=== PATIENT | male | born 1925 | race Caucasian/White ===

== ENCOUNTER 2017-09-09 17:22 | Emergency (ER) | payer MEDICARE, OTHER ==
[~2017-09-09 17:22] MED LIST: Phenylephrine 0.5% Nasal Spray 15 ML Bot NASLF ONE
--- NOTE | 2017-09-09 17:39 | EDM.PDOC ---
ED HPI GENERAL MEDICAL PROBLEM - General Chief Complaint: ENT Problem Stated Complaint: CAME BY AMBULANCE, BLOODY NOSE Time Seen by Provider: 09/09/17 17:34 Source of Information: Reports: Patient History Limitations: Reports: No Limitations - History of Present Illness INITIAL COMMENTS - FREE TEXT/NARRATIVE: Patient complains of epitaxis. He's had a bloody nose since about 2:00 this afternoon. It's been intermittent. He presents by ambulance. He denies lightheadedness. Recently increased his nasal cannula oxygen. His bloody nose began after this. He denies any change in his other medications. Denies lightheadedness. No complaints of headache or ear pain. No difficulty with swallowing. No recent falls or injuries. Onset: Today, Sudden Duration: Hour(s): Location: Reports: Face Severity: Mild - Related Data Allergies Allergy/AdvReac Type Severity Reaction Status Date / Time ciprofloxacin Allergy Diarrhea Verified 09/09/17 17:36 ibuprofen Allergy Other Verified 09/09/17 17:36 isosorbide Allergy Other Verified 09/09/17 17:36 propoxyphene [From Darvon] Allergy Other Verified 09/09/17 17:36 Home Meds: Home Meds Allopurinol [Zyloprim] 100 mg PO DAILY 09/09/17 [History] Aspirin [Halfprin] 81 mg PO DAILY 09/09/17 [History] Budesonide [Pulmicort] 1 vial INH BID 09/09/17 [History] Clopidogrel [Plavix] 75 mg PO DAILY 09/09/17 [History] Formoterol Fumarate [Perforomist] 1 vial INH BID 09/09/17 [History] Furosemide 60 mg PO DAILY 09/09/17 [History] Levothyroxine [Synthroid] 50 mcg PO DAILY 09/09/17 [History] Lisinopril 2.5 mg PO Q48H 09/09/17 [History] Metolazone 2.5 mg PO ASDIRECTED PRN 09/09/17 [History] Metoprolol Tartrate [Lopressor] 12.5 mg PO BID 09/09/17 [History] Nitroglycerin [Nitrostat] 1 tab SL ASDIRECTED PRN 09/09/17 [History] Pantoprazole [ProTONIX] 40 mg PO DAILY 09/09/17 [History] Potassium Chloride 10 meq PO BID 09/09/17 [History] Simvastatin [Zocor] 20 mg PO DAILY 09/09/17 [History] amLODIPine [Norvasc] 2.5 mg PO DAILY 09/09/17 [History] traMADol [Ultram] 50 mg PO Q6H PRN 09/09/17 [History] ED ROS ENT - Review of Systems Review Of Systems: ROS reveals no pertinent complaints other than HPI. ED EXAM, ENT - Physical Exam Exam: See Below Exam Limited By: No Limitations General Appearance: Alert Nose: Active Bleeding, Dried Blood, Other (Patient has active anterior bleeding on the left nares. After Memo-Synephrine bleeding was controlled. He's had intermittent bleeding while in the emergency room. No sinus tenderness.) Neck: Normal Inspection, Supple Respiratory/Chest: No Respiratory Distress, Lungs Clear Cardiovascular: Normal Peripheral Pulses, Regular Rate, Rhythm Extremities: Normal Inspection, Normal Capillary Refill Neurological: Alert, Oriented, CN II-XII Intact Skin: Warm, Dry ED ENT PROCEDURES - Epistaxis Procedure Indication: Epistaxis, Controlled Recent anticoagulants/antiplatlets: Yes Uncontrolled HTN: No Recent septal/nasal surgery: No Site of bleeding: Left Nare, Anterior Clearing of clots: Patient Blew Nose Topical Meds: Phenylephrine Anterior Packing: Nasal [place] Complications: No Course - Vital Signs Last Recorded V/S: Last Vital Signs Temp 99.1 F 09/09/17 17:23 Pulse 72 09/09/17 17:23 Resp 18 09/09/17 17:23 BP 109/69 09/09/17 17:23 Pulse Ox 88 L 09/09/17 17:23 - Orders/Labs/Meds Labs: Laboratory Tests 09/09/17 Range/Units 17:45 WBC 9.4 (5.0-10.0) 10^3/uL RBC 3.47 L (4.6-6.2) 10^6/uL Hgb 11.9 L (14.0-18.0) g/dL Hct 36.5 L (40.0-54.0) % MCV 105.2 H (80-100) fL MCH 34.3 H (27.0-34.0) pg MCHC 32.6 L (33.0-35.0) g/dL Plt Count 165 (150-450) 10^3/uL Neut % (Auto) 70.4 (42.2-75.2) % Lymph % (Auto) 14.9 L (20.5-50.1) % [place] % (Auto) 10.7 H (2-8) % Eos % (Auto) 3.7 H (1.0-3.0) % Baso % (Auto) 0.3 (0.0-1.0) % Meds: Medications Discontinued Medications Generic Name Dose Route Start Last Admin Trade Name Taqueria PRN Reason Stop Dose Admin Bacitracin Confirm 09/09/17 18:11 09/09/17 18:24 Bacitracin Oint 1 Gm Administered 09/09/17 18:12 Not Given Dose 1 dose .ROUTE .STK-MED ONE Bacitracin 2 dose 09/09/17 18:16 09/09/17 18:24 Bacitracin Oint 1 Gm TOP 09/09/17 18:17 2 dose ONETIME ONE Administration Bacitracin Confirm 09/09/17 18:14 09/09/17 18:24 Bacitracin Oint 1 Gm Administered 09/09/17 18:15 Not Given Dose 1 dose .ROUTE .STK-MED ONE Phenylephrine HCl Confirm 09/09/17 17:08 09/09/17 18:24 Memo-Synephrine 0.25% Mild Nasal [place] Administered 09/09/17 17:09 Not Given Dose 15 ml .ROUTE .STK-MED ONE Phenylephrine HCl 2 ml 09/09/17 17:10 09/09/17 18:24 Memo-Synephrine 0.5% Regular Nasal [place] NASLF 09/09/17 17:11 2 sprays ONETIME ONE Administration Departure - Departure Time of Disposition: 18:43 Disposition: Home, Self-Care 01 Condition: Good Clinical Impression: Epistaxis - Discharge Information Forms: ED Department Discharge Additional Instructions: Follow-up to the emergency room or primary care on Monday to talk about removal of nasal packing. Continue with regular medications. Use nasal oxygen as directed. Call or return to the emergency room of problems questions or concerns
[2017-09-09] MEDS ORDERED: Bacitracin Oint 1 GM U/D Packet ONE ×2 (18:11→18:14)
[2017-09-09] MEDS ORDERED: Bacitracin Oint 1 GM U/D Packet TOP ONE (18:16)
== END 2017-09-09 18:54 | disposition home or self-care (01) ==
LOC: DL.ED 17:22
DX: R04.0 Epistaxis (principal); Z79.82 Long term (current) use of aspirin; Z79.02 Long term (current) use of antithrombotics/antiplatelets; Z79.899 Other long term (current) drug therapy; Z88.1 Allergy status to other antibiotic agents; Z88.8 Allergy status to other drugs, medicaments and biological substances
CPT/HCPCS: 30901; 36415; 85025; 99282; 99283

== ENCOUNTER 2017-09-11 10:53 | Emergency (ER) | payer MEDICARE, OTHER ==
[2017-09-11] MEDS ORDERED: diphenhydrAMINE 50 MG/ML SDV IM ONE (12:03)
--- NOTE | 2017-09-11 12:24 | EDM.PDOC ---
Scribed by Destiny Stauffer 09/11/17 1218 for Herminio Maynard PA ED HPI GENERAL MEDICAL PROBLEM - General Chief Complaint: ENT Problem Stated Complaint: NEED PACKING REMOVED FROM NOSE Time Seen by Provider: 09/11/17 12:10 Source of Information: Reports: Patient, RN, RN Notes Reviewed History Limitations: Reports: No Limitations - History of Present Illness INITIAL COMMENTS - FREE TEXT/NARRATIVE: This 89 yo female patient reports to the ED to have his nasal packing removed. The patient had the packing placed in the ED on 09/09/17. The patient has had no return or bleeding. Onset: Sudden Duration: Day(s): (2), Constant Location: Reports: Face Quality: Reports: Dull, Pressure Severity: Mild Improves with: Reports: None Worsens with: Reports: None Associated Symptoms: Reports: No Other Symptoms - Related Data Allergies Allergy/AdvReac Type Severity Reaction Status Date / Time ciprofloxacin Allergy Diarrhea Verified 09/09/17 17:36 ibuprofen Allergy Other Verified 09/09/17 17:36 isosorbide Allergy Other Verified 09/09/17 17:36 propoxyphene [From Darvon] Allergy Other Verified 09/09/17 17:36 Home Meds: Home Meds Allopurinol [Zyloprim] 100 mg PO DAILY 09/09/17 [History] Aspirin [Halfprin] 81 mg PO DAILY 09/09/17 [History] Budesonide [Pulmicort] 1 vial INH BID 09/09/17 [History] Clopidogrel [Plavix] 75 mg PO DAILY 09/09/17 [History] Formoterol Fumarate [Perforomist] 1 vial INH BID 09/09/17 [History] Furosemide 60 mg PO DAILY 09/09/17 [History] Levothyroxine [Synthroid] 50 mcg PO DAILY 09/09/17 [History] Lisinopril 2.5 mg PO Q48H 09/09/17 [History] Metolazone 2.5 mg PO ASDIRECTED PRN 09/09/17 [History] Metoprolol Tartrate [Lopressor] 12.5 mg PO BID 09/09/17 [History] Nitroglycerin [Nitrostat] 1 tab SL ASDIRECTED PRN 09/09/17 [History] Pantoprazole [ProTONIX] 40 mg PO DAILY 09/09/17 [History] Potassium Chloride 10 meq PO BID 09/09/17 [History] Simvastatin [Zocor] 20 mg PO DAILY 09/09/17 [History] amLODIPine [Norvasc] 2.5 mg PO DAILY 09/09/17 [History] traMADol [Ultram] 50 mg PO Q6H PRN 09/09/17 [History] Past Medical History HEENT History: Reports: Impaired Vision Cardiovascular History: Reports: CAD, Heart Failure, High Cholesterol, Hypertension, Pulmonary Hypertension Respiratory History: Reports: COPD Endocrine/Metabolic History: Reports: Diabetes, Type II - Past Surgical History Cardiovascular Surgical History: Reports: Coronary Artery Bypass Social & Family History - Tobacco Use Smoking Status *Q: Former Smoker Years of Tobacco use: 36 Packs/Tins Daily: 1 Used Tobacco, but Quit: Yes Month Tobacco Last Used: 1983 - Caffeine Use Caffeine Use: Reports: Coffee, Soda, Tea - Recreational Drug Use Recreational Drug Use: No ED ROS ENT - Review of Systems Review Of Systems: ROS reveals no pertinent complaints other than HPI. ED EXAM, ENT - Physical Exam Exam: See Below Exam Limited By: No Limitations General Appearance: Alert, WD/WN, No Apparent Distress Eye Exam: Bilateral Eye: EOMI, Normal Inspection, PERRL Ears: Normal External Exam, Normal Canal, Hearing Grossly Normal, Normal TMs Nose: Normal Inspection, Normal Mucousa, No Blood, Other (dry) Mouth/Throat: Normal Inspection, Normal Gums, Normal Lips, Normal Oropharynx, Normal Teeth Head: Atraumatic, Normocephalic Neck: Normal Inspection, Supple, Non-Tender, Full Range of Motion Respiratory/Chest: No Respiratory Distress, Lungs Clear, Normal Breath Sounds, No Accessory Muscle Use, Chest Non-Tender Cardiovascular: Normal Peripheral Pulses, Regular Rate, Rhythm, No Edema, No Gallop, No JVD, No Murmur, No Rub GI/Abdominal: Normal Bowel Sounds, Soft, Non-Tender, No Organomegaly, No Distention, No Abnormal Bruit, No Mass (Male) Exam: Deferred Rectal (Males) Exam: Deferred Back: Normal Inspection, Full Range of Motion Extremities: Normal Inspection, Normal Range of Motion, Non-Tender, No Pedal Edema, Normal Capillary Refill Neurological: Alert, Oriented, CN II-XII Intact, Normal Cognition, Normal Gait, Normal Reflexes, No Motor/Sensory Deficits Psychiatric: Normal Affect, Normal Mood Skin: Warm, Dry, Intact, Normal Color, No Rash Lymphatic: No Adenopathy Course - Vital Signs Last Recorded V/S: Last Vital Signs Temp 36.6 C 09/11/17 11:12 Pulse 66 09/11/17 11:12 Resp 20 09/11/17 11:12 BP 113/40 L 09/11/17 11:12 Pulse Ox 96 09/11/17 11:12 - Orders/Labs/Meds Meds: Medications Discontinued Medications Generic Name Dose Route Start Last Admin Trade Name Taqueria PRN Reason Stop Dose Admin Diphenhydramine HCl 50 mg 09/11/17 12:03 Benadryl IM 09/11/17 12:04 ONETIME ONE Departure - Departure Time of Disposition: 12:18 Disposition: Home, Self-Care 01 Condition: Fair Clinical Impression: Encounter for removal of nasal pack - Discharge Information Forms: ED Department Discharge Care Plan Goals: The patient was advised of the examination results during the visit. The patient was encouraged to put either a triple antibiotic ointment or Aquaphor in his nares 2 times per day to increase moisture. If the patient has any additional symptoms or concerns, the patient should follow-up with his primary care facility or return to the emergency department. I have read and agree with the documentation that has been completed regarding this visit. By signing this record, I attest that the documentation was completed in my physical presence and is an accurate record of the encounter.
== END 2017-09-11 12:26 | disposition home or self-care (01) ==
LOC: DL.ED 10:53
DX: Z48.00 Encounter for change or removal of nonsurgical wound dressing (principal); E78.00 Pure hypercholesterolemia, unspecified; I11.0 Hypertensive heart disease with heart failure; I50.9 Heart failure, unspecified; E11.9 Type 2 diabetes mellitus without complications; Z88.1 Allergy status to other antibiotic agents; Z88.8 Allergy status to other drugs, medicaments and biological substances; Z79.82 Long term (current) use of aspirin; Z79.899 Other long term (current) drug therapy; Z87.891 Personal history of nicotine dependence
CPT/HCPCS: 99282

== ENCOUNTER 2017-10-23 05:52 | Emergency (ER) | payer MEDICARE, OTHER ==
[2017-10-23] MEDS ORDERED: Oxymetazoline 0.05% Nasal Spray 15 ML Bottle NAS ONE (05:53)
--- NOTE | 2017-10-23 06:20 | EDM.PDOC ---
ED HPI GENERAL MEDICAL PROBLEM - General Stated Complaint: BLOODY NOSE [id number] Time Seen by Provider: 10/23/17 06:15 Source of Information: Reports: Patient History Limitations: Reports: No Limitations - History of Present Illness INITIAL COMMENTS - FREE TEXT/NARRATIVE: This 89 yo male patient reports to the ED due to a nose bleed. The patient reports his bleeding started last night and he has been up all night attempting to stop the bleeding. The patient reports he has increased the humidity in his home and has been using Vaseline to increase the moisture in his nose, but still got a nosebleed. The patient reports he had a tissue stuffed in his nose all night and does not believe that there is any bleeding at this time. Onset Date: 10/22/17 Duration: Resolved Prior to Arrival Location: Reports: Face (left nare) Quality: Reports: Other Severity: Moderate Improves with: Reports: None Worsens with: Reports: None Context: Reports: Other Associated Symptoms: Reports: No Other Symptoms - Related Data Allergies Allergy/AdvReac Type Severity Reaction Status Date / Time ciprofloxacin Allergy Diarrhea Verified 10/23/17 06:24 ibuprofen Allergy Other Verified 10/23/17 06:24 isosorbide Allergy Other Verified 10/23/17 06:24 propoxyphene [From Darvon] Allergy Other Verified 10/23/17 06:24 Home Meds: Home Meds Allopurinol [Zyloprim] 100 mg PO DAILY 09/09/17 [History] Aspirin [Halfprin] 81 mg PO DAILY 09/09/17 [History] Budesonide [Pulmicort] 1 vial INH BID 09/09/17 [History] Clopidogrel [Plavix] 75 mg PO DAILY 09/09/17 [History] Formoterol Fumarate [Perforomist] 1 vial INH BID 09/09/17 [History] Furosemide 60 mg PO DAILY 09/09/17 [History] Levothyroxine [Synthroid] 50 mcg PO DAILY 09/09/17 [History] Metolazone 2.5 mg PO ASDIRECTED PRN 09/09/17 [History] Metoprolol Tartrate [Lopressor] 12.5 mg PO BID 09/09/17 [History] Nitroglycerin [Nitrostat] 1 tab SL ASDIRECTED PRN 09/09/17 [History] Pantoprazole [ProTONIX] 40 mg PO DAILY 09/09/17 [History] Potassium Chloride 10 meq PO BID 09/09/17 [History] Simvastatin [Zocor] 20 mg PO DAILY 09/09/17 [History] amLODIPine [Norvasc] 2.5 mg PO DAILY 09/09/17 [History] traMADol [Ultram] 50 mg PO Q6H PRN 09/09/17 [History] Past Medical History HEENT History: Reports: Impaired Vision Cardiovascular History: Reports: CAD, Heart Failure, High Cholesterol, Hypertension, Pulmonary Hypertension Respiratory History: Reports: COPD Endocrine/Metabolic History: Reports: Diabetes, Type II - Past Surgical History Cardiovascular Surgical History: Reports: Coronary Artery Bypass Social & Family History - Tobacco Use Smoking Status *Q: Former Smoker Years of Tobacco use: 36 Packs/Tins Daily: 1 Used Tobacco, but Quit: Yes Month/Year Tobacco Last Used: 1983 - Caffeine Use Caffeine Use: Reports: Coffee, Soda, Tea - Recreational Drug Use Recreational Drug Use: No ED ROS ENT - Review of Systems Review Of Systems: ROS reveals no pertinent complaints other than HPI. ED EXAM, ENT - Physical Exam Exam: See Below Exam Limited By: No Limitations General Appearance: Alert, WD/WN, Mild Distress, Thin Eye Exam: Bilateral Eye: EOMI, PERRL Ears: Normal External Exam, Normal Canal, Hearing Grossly Normal, Normal TMs Nose: Normal Inspection, Other (the patient has an area of irritation along the septum of the left nare with no active bleeding) Mouth/Throat: Normal Inspection, Normal Gums, Normal Lips, Normal Oropharynx Head: Atraumatic, Normocephalic Neck: Normal Inspection Respiratory/Chest: No Respiratory Distress, Lungs Clear, Normal Breath Sounds, No Accessory Muscle Use, Chest Non-Tender Cardiovascular: Normal Peripheral Pulses, Regular Rate, Rhythm, No Edema, No Gallop, No JVD, No Rub GI/Abdominal: Normal Bowel Sounds, Soft, Non-Tender, No Organomegaly, No Distention, No Abnormal Bruit, No Mass (Male) Exam: Deferred Rectal (Males) Exam: Deferred Back: Normal Inspection, Full Range of Motion Extremities: Normal Inspection, Normal Range of Motion, Non-Tender, No Pedal Edema, Normal Capillary Refill Neurological: Alert, Oriented, CN II-XII Intact, Normal Cognition, Normal Gait, Normal Reflexes, No Motor/Sensory Deficits Psychiatric: Normal Affect, Normal Mood Skin: Warm, Dry, Intact, Normal Color, No Rash Lymphatic: No Adenopathy Course - Vital Signs Last Recorded V/S: Last Vital Signs Temp 36.4 C 10/23/17 05:58 Pulse 67 10/23/17 05:58 Resp 20 10/23/17 05:58 BP 107/52 L 10/23/17 05:58 Pulse Ox 86 L 10/23/17 05:58 - Orders/Labs/Meds Meds: Medications Discontinued Medications Generic Name Dose Route Start Last Admin Trade Name Taqueria PRN Reason Stop Dose Admin Oxymetazoline HCl 1 ml 10/23/17 05:53 10/23/17 06:08 Afrin Original 0.05% Nasal [place] 10/23/17 05:54 1 ml ONETIME ONE Administration Departure - Departure Time of Disposition: 06:54 Disposition: Home, Self-Care 01 Condition: Fair Clinical Impression: Bleeding nose - Discharge Information Instructions: Nosebleed, Adult, [id number] Forms: ED Department Discharge Care Plan Goals: The patient was advised of the examination results during the visit. The patient was encouraged to use Aquaphor (applied to a Q-tip then to the nose) two times per day to increase the moisture in his nose. The patient may want to speak to his primary care provider for a humidifier to place on his oxygen machine. If the patient has any additional symptoms or concerns, the patient should either return to the emergency department or visit his primary care facility.
== END 2017-10-23 07:03 | disposition home or self-care (01) ==
LOC: DL.ED 05:52
DX: R04.0 Epistaxis (principal); I50.9 Heart failure, unspecified; E78.00 Pure hypercholesterolemia, unspecified; I11.0 Hypertensive heart disease with heart failure; I25.10 Atherosclerotic heart disease of native coronary artery without angina pectoris; E11.9 Type 2 diabetes mellitus without complications; Z88.1 Allergy status to other antibiotic agents; Z88.8 Allergy status to other drugs, medicaments and biological substances; Z79.82 Long term (current) use of aspirin; Z79.899 Other long term (current) drug therapy; Z87.891 Personal history of nicotine dependence
CPT/HCPCS: 99282; A9270